=== PATIENT | female | born 1965 | race Caucasian/White ===

== ENCOUNTER 2021-01-15 10:16 | Inpatient (IN) | payer SELFPAY ==
[~2021-01-15 10:16] MED LIST: Iopamidol-370 76% 500 ML 1 ML ONE
[2021-01-15 10:46] LABS: Bacteria/HPF Rare-Few HPF (None Seen); Bilirubin Negative (Negative); Blood, Urine Negative (Negative); Clarity Turbid (Clear); Glucose, Urine (Dipstick) Normal (Negative); Ketone, Urine 40 mg/dL (Negative); Leukocyte 25 Leu/uL (Negative); Nitrite Negative (Negative); Protein, Urine (Dipstick) 70 mg/dL (Neg-Trace); RBC/HPF 0-3 HPF (0-3); Urobilinogen 3 mg/dL (Less than 2); pH, Urine 5.5 (5.0-9.0)
[2021-01-15 10:59] LABS: Hemoglobin 16.6 g/dL (12.0-16.0); Mean Corpuscular HGB CONC 33.1 g/dL (32.0-36.0); Mean Corpuscular Hemoglobin 29.1 pg (27.0-31.0); Mean Corpuscular Volume 87.7 fL (78.0-98.0); RBC Distribution Width 12.4 % (11.5-14.5); Red Blood Cell (RBC) Count 5.71 mill/uL (4.20-5.40); White Blood Cell (WBC) Count 5.6 thou/uL (4.8-10.8)
[2021-01-15 11:21] LABS: #Lymphocytes 1.4 thou/uL (1.20-3.40); #Monocytes 0.4 thou/uL (0.11-0.59); #Neutrophils 3.7 thou/uL (1.40-6.50); %Basophils 0.7 % (0.0-1.0); %Eosinophils 0.1 % (0.0-10.0); %Lymphocytes 24.3 % (21.0-51.0); %Neutrophils 66.9 % (42.0-75.0); Large Platelets MODERATE; MDiff Complete? YES; Mean Platelet Volume 10.2 fL (7.4-10.4); Platelet Count 85 thou/uL (130-400); Platelet Morphology Comment Appears Decreased; RBC Morphology Normal
[2021-01-15] MEDS ORDERED: Ondansetron PF 4 MG/2 ML Vial ONE (11:25)
[2021-01-15 11:33] LABS: Albumin 3.9 g/dL (3.5-5.0)
[2021-01-15] MEDS ORDERED: Azithromycin 500 MG VIAL ONE (11:33)
[2021-01-15] MEDS ORDERED: Dexamethasone 4 mg/ml Vial ONE (11:33)
[2021-01-15] MEDS ORDERED: Clopidogrel Bisulfate 75 MG TAB ONE (11:33)
[2021-01-15 11:34] LABS: Chloride 104 mmol/L (98-107); Potassium 4.3 mmol/L (3.5-5.1); Sodium 132 mmol/L (136-145)
[2021-01-15 11:35] LABS: Calcium 8.6 mg/dL (7.8-10.44); Glucose 193 mg/dL (70-105)
[2021-01-15 11:36] LABS: Globulin 3.8 g/dL (2.4-3.5); Protein, Total 7.7 g/dL (6.0-8.3)
[2021-01-15 11:37] LABS: Anion Gap 18 mmol/L (10-20); Bilirubin, Total 0.8 mg/dL (0.2-1.2); Carbon Dioxide 14 mmol/L (22-29)
[2021-01-15 11:38] LABS: Alkaline Phosphatase 98 U/L (40-110)
[2021-01-15 11:39] LABS: Calc. Creatinine Clearance 0 mL/min (70-130)
[2021-01-15 11:40] LABS: AST (SGOT) 89 U/L (5-34); BUN (Urea Nitrogen) 13 mg/dL (9.8-20.1)
[2021-01-15 11:41] LABS: ALT (SGPT) 58 U/L (8-55)
[2021-01-15 11:42] LABS: Lipase 55 U/L (8-78)
[2021-01-15 12:04] LABS: CKMB 0.2 ng/mL (0-6.6)
[2021-01-15 13:19] LABS: SARS-CoV-2 NAA Rapid Test DETECTED (NotDetected)
[2021-01-15] MEDS ORDERED: Albuterol Sulfate 2.5 mg/3 ml Neb NEB PRN (13:51)
[2021-01-15] MEDS ORDERED: Guaifenesin DM 100-10/5 ML UDCUP PO PRN (13:51)
[2021-01-15] MEDS ORDERED: Ondansetron PF 4 MG/2 ML Vial IVP PRN (13:51)
[2021-01-15] MEDS ORDERED: Senokot S 8.6-50 MG TAB PO PRN (13:51)
[2021-01-15] MEDS ORDERED: Acetaminophen 325 MG TAB PO PRN (13:51)
[2021-01-15] MEDS ORDERED: Loperamide HCl 2 MG CAP PO PRN (13:57)
[2021-01-15] MEDS ORDERED: Benzonatate 100 MG CAP PO PRN (13:57)
[2021-01-15] MEDS ORDERED: Sodium Chloride 0.9% 1,000 ML IV SCH (16:00)
[2021-01-15 16:12] VITALS: BMI 37.3
[2021-01-15] MEDS: Famotidine/PF 20 mg/2ml Vial SLOW IVP SCH (21:00)
[2021-01-16 06:21] LABS: #Lymphocytes 1.1 thou/uL (1.20-3.40); #Monocytes 0.3 thou/uL (0.11-0.59); #Neutrophils 3.4 thou/uL (1.40-6.50); %Eosinophils 0.2 % (0.0-10.0); %Lymphocytes 22.9 % (21.0-51.0); %Monocytes 6.7 % (0.0-10.0); %Neutrophils 70.2 % (42.0-75.0); Hemoglobin 14.1 g/dL (12.0-16.0); Mean Corpuscular HGB CONC 32.8 g/dL (32.0-36.0); Mean Corpuscular Hemoglobin 28.2 pg (27.0-31.0); Mean Platelet Volume 10.5 fL (7.4-10.4); Platelet Count 77 thou/uL (130-400); Red Blood Cell (RBC) Count 4.98 mill/uL (4.20-5.40); White Blood Cell (WBC) Count 4.8 thou/uL (4.8-10.8)
[2021-01-16 06:43] LABS: ALT (SGPT) 50 U/L (8-55); AST (SGOT) 67 U/L (5-34); Albumin 3.6 g/dL (3.5-5.0); Alkaline Phosphatase 86 U/L (40-110); Anion Gap 12 mmol/L (10-20); BUN (Urea Nitrogen) 13 mg/dL (9.8-20.1); Bilirubin, Total 0.6 mg/dL (0.2-1.2); CRP (Inflammatory) 2.16 mg/dL (= or < 0.5); Calc. Creatinine Clearance 118 mL/min (70-130); Calcium 7.9 mg/dL (7.8-10.44); Carbon Dioxide 21 mmol/L (22-29); Chloride 106 mmol/L (98-107); Glucose 230 mg/dL (70-105); Protein, Total 6.6 g/dL (6.0-8.3); Sodium 135 mmol/L (136-145)
[2021-01-16] MEDS ORDERED: HumaLOG 300 UNITS/3 ML VIAL SC PRN (07:52)
[2021-01-16] MEDS ORDERED: Dextrose 5% in Water 1,000 ML IV PRN (07:52)
[2021-01-16] MEDS ORDERED: Dextrose 50% Abboject 50 ML SYRINGE SLOW IVP PRN (07:52)
[2021-01-16] MEDS: Famotidine/PF 20 mg/2ml Vial SLOW IVP SCH (08:31)
[2021-01-16] MEDS ORDERED: Aspirin 81 mg Enteric Coated Tablet PO SCH (09:00)
[2021-01-16] MEDS ORDERED: Enoxaparin Sodium 40 MG/0.4 ML SYRINGE SC SCH (09:00)
[2021-01-16] MEDS ORDERED: Dexamethasone 4 mg/ml Vial SLOW IVP SCH (09:00)
[2021-01-16 11:42] VITALS: BP 109/70; TEMP 98.2
== END 2021-01-16 14:40 | disposition home or self-care (01) | DRG 177 ==
LOC: ERS 10:16 → T4-A 13:28
PROVIDERS: ADMIT Internal Medicine; ATTEND Internal Medicine
PROC: 8E0ZXY6 Isolation (ICD-10-PCS; principal; 2021-01-15)
DX: U07.1 COVID-19 (principal); J12.82 Pneumonia due to coronavirus disease 2019; E86.0 Dehydration; A08.4 Viral intestinal infection, unspecified; R71.8 Other abnormality of red blood cells; D69.6 Thrombocytopenia, unspecified; Z88.1 Allergy status to other antibiotic agents; Z88.6 Allergy status to analgesic agent
CPT/HCPCS: 0240U; 36415; 36416; 71045; 71275; 80053; 81003; 81015; 82550; 82553; 82728; 83605; 83615; 83690; 83880; 84484; 85025; 85379; 86140; 87086; 93005; 96365; 96366; 96374; 96375; J0456; J1100; J1815; J1956; J2405; S0028

== ENCOUNTER 2021-01-18 14:34 | Inpatient (IN) | payer SELFPAY ==
[~2021-01-18 14:34] MED LIST changes: +Heparin 1,000 UNITS/ML VIAL ONE; -Iopamidol-370 76% 500 ML 1 ML ONE
[2021-01-18] MEDS ORDERED: Dexamethasone 4 mg/ml Vial ONE (14:59)
[2021-01-18 15:24] LABS: #Basophils 0.1 thou/uL (0.0-0.2); #Lymphocytes 0.7 thou/uL (1.20-3.40); #Monocytes 0.3 thou/uL (0.11-0.59); #Neutrophils 5.4 thou/uL (1.40-6.50); %Basophils 0.8 % (0.0-1.0); %Eosinophils 0.1 % (0.0-10.0); %Monocytes 4.5 % (0.0-10.0); %Neutrophils 83.6 % (42.0-75.0); Hemoglobin 14.5 g/dL (12.0-16.0); Mean Corpuscular HGB CONC 33.1 g/dL (32.0-36.0); Mean Corpuscular Hemoglobin 28.5 pg (27.0-31.0); Mean Corpuscular Volume 86.3 fL (78.0-98.0); Mean Platelet Volume 10.2 fL (7.4-10.4); Platelet Count 94 thou/uL (130-400); RBC Distribution Width 12.2 % (11.5-14.5); Red Blood Cell (RBC) Count 5.07 mill/uL (4.20-5.40); White Blood Cell (WBC) Count 6.4 thou/uL (4.8-10.8)
[2021-01-18] MEDS ORDERED: Enoxaparin Sodium 80 MG/0.8 ML SYRINGE ONE (15:27)
[2021-01-18] MEDS ORDERED: Enoxaparin Sodium 30 MG/0.3 ML SYRINGE ONE (15:27)
[2021-01-18 15:32] LABS: Actual Bicarbonate (HCO3a) 22.7 mEq/L (22-28); Analyzer IN Cardio ER; Base Excess (BEa) 0.3 mEq/L (-2.0 to +3.0); CO2 Tension 30.8 mmHg (35.0-45.0); Carboxyhemoglobin (COHb) 0.4 gm% (0.0-3.0); Hemoglobin (Hb) 14.1 g/dL (12.0-16.0); Potassium - ABG Lab 3.92 mmol/L (3.70-5.30); pH, Arterial 7.49 (7.35-7.45)
[2021-01-18 15:33] LABS: O2 Tension (PaO2), arterial 53.6 mmHg (80.0-100.0)
[2021-01-18 15:45] LABS: ALT (SGPT) 37 U/L (8-55); AST (SGOT) 56 U/L (5-34); Albumin 3.7 g/dL (3.5-5.0); Alkaline Phosphatase 82 U/L (40-110); Anion Gap 18 mmol/L (10-20); BUN (Urea Nitrogen) 13 mg/dL (9.8-20.1); Bilirubin, Total 0.8 mg/dL (0.2-1.2); CK (CPK) 119 U/L (29-168); Calc. Creatinine Clearance 0 mL/min (70-130); Calcium 8.8 mg/dL (7.8-10.44); Carbon Dioxide 23 mmol/L (22-29); Chloride 102 mmol/L (98-107); Globulin 2.8 g/dL (2.4-3.5); Glucose 263 mg/dL (70-105); Lipase 69 U/L (8-78); Potassium 4.5 mmol/L (3.5-5.1); Protein, Total 6.5 g/dL (6.0-8.3); Sodium 138 mmol/L (136-145)
[2021-01-18] MEDS ORDERED: Ondansetron PF 4 MG/2 ML Vial ONE (16:22)
[2021-01-18] MEDS ORDERED: Ivermectin 3 MG TAB PO SCH (16:45)
[2021-01-18] MEDS ORDERED: Colchicine 0.6 MG TAB PO SCH (16:45)
[2021-01-18] MEDS ORDERED: cefTRIAXone\\ROCEPHIN 1 GM in Sodium Chloride 0.9% 100 ML IVPB SCH (18:00)
[2021-01-18] MEDS: methylPREDNISolone Sod Succ/PF 125 MG in Sodium Chloride 0.9% 250 ML 250 ML IVPB SCH (20:05)
[2021-01-18] MEDS: Famotidine/PF 20 mg/2ml Vial SLOW IVP SCH (20:07)
[2021-01-18] MEDS ORDERED: Enoxaparin Sodium 40 MG/0.4 ML SYRINGE SC SCH (21:00)
[2021-01-18] MEDS ORDERED: Dextrose 50% Abboject 50 ML SYRINGE SLOW IVP PRN (21:00)
[2021-01-18] MEDS ORDERED: Dextrose 5% in Water 1,000 ML IV PRN (21:00)
[2021-01-18 21:27] LABS: Actual Bicarbonate (HCO3a) 23.4 mEq/L (22-28); Base Excess (BEa) 0.6 mEq/L (-2.0 to +3.0); CO2 Tension 32.4 mmHg (35.0-45.0); Calcium, Ionized (arterial) 1.12 mmol/L (1.12-1.30); Carboxyhemoglobin (COHb) 0.1 gm% (0.0-3.0); Hemoglobin (Hb) 13.8 g/dL (12.0-16.0); Potassium - ABG Lab 4.38 mmol/L (3.70-5.30); pH, Arterial 7.48 (7.35-7.45)
[2021-01-18 21:28] LABS: O2 Tension (PaO2), arterial 59.1 mmHg (80.0-100.0); Puncture Site LRA
[2021-01-18] MEDS: Acetaminophen 325 MG TAB PO PRN (22:04)
[2021-01-18] MEDS: HumaLOG 300 UNITS/3 ML VIAL SC PRN (22:10)
[2021-01-19 03:42] LABS: #Lymphocytes 0.6 thou/uL (1.20-3.40); #Monocytes 0.3 thou/uL (0.11-0.59); #Neutrophils 2.8 thou/uL (1.40-6.50); %Eosinophils 0.1 % (0.0-10.0); %Lymphocytes 17.1 % (21.0-51.0); %Monocytes 7.6 % (0.0-10.0); %Neutrophils 75.3 % (42.0-75.0); Hemoglobin 13.8 g/dL (12.0-16.0); Mean Corpuscular HGB CONC 34.2 g/dL (32.0-36.0); Mean Corpuscular Hemoglobin 29.8 pg (27.0-31.0); Mean Corpuscular Volume 87.2 fL (78.0-98.0); Mean Platelet Volume 9.8 fL (7.4-10.4); Platelet Count 83 thou/uL (130-400); RBC Distribution Width 12.1 % (11.5-14.5); Red Blood Cell (RBC) Count 4.61 mill/uL (4.20-5.40); White Blood Cell (WBC) Count 3.7 thou/uL (4.8-10.8)
[2021-01-19 03:47] LABS: Hemoglobin A1c 8.8 % (4.0-6.0)
[2021-01-19 04:01] LABS: Anion Gap 12 mmol/L (10-20); BUN (Urea Nitrogen) 15 mg/dL (9.8-20.1); Calc. Creatinine Clearance 126 mL/min (70-130); Calcium 8.3 mg/dL (7.8-10.44); Carbon Dioxide 21 mmol/L (22-29); Chloride 106 mmol/L (98-107); Glucose 366 mg/dL (70-105); Potassium 4.2 mmol/L (3.5-5.1); Sodium 135 mmol/L (136-145)
[2021-01-19] MEDS: HumaLOG 300 UNITS/3 ML VIAL SC PRN ×4 (06:59→21:39)
[2021-01-19] MEDS ORDERED: Enoxaparin Sodium 80 MG/0.8 ML SYRINGE SC SCH ×2 (09:00)
[2021-01-19] MEDS ORDERED: Azithromycin 250 MG TAB PO SCH (09:00)
[2021-01-19] MEDS ORDERED: Ivermectin 3 MG TAB PO SCH (09:00)
[2021-01-19] MEDS ORDERED: methylPREDNISolone Sod Succ/PF 125 MG/2 ML VIAL IVP SCH (09:00)
[2021-01-19] MEDS: Ascorbic Acid 500 mg Chewable Tablet PO SCH (09:01)
[2021-01-19] MEDS: Cholecalciferol (Vitamin D3) 400 UNITS TAB PO SCH (09:01)
[2021-01-19] MEDS: Enoxaparin Sodium 40 MG/0.4 ML SYRINGE SC SCH ×2 (09:01→20:05)
[2021-01-19] MEDS: Famotidine/PF 20 mg/2ml Vial SLOW IVP SCH ×2 (09:01→20:05)
[2021-01-19] MEDS: Colchicine 0.6 MG TAB PO SCH ×2 (09:05→20:05)
[2021-01-19] MEDS ORDERED: Electrolyte Replacement Protocol FS PRN (11:33)
[2021-01-19] MEDS ORDERED: Ventilator Sedation Protocol 1 EACH FS ONE (11:33)
[2021-01-19] MEDS ORDERED: Fentanyl BOLUS 250 ML IVPB PRN (12:00)
[2021-01-19] MEDS ORDERED: Morphine 2 MG/ML VIAL SLOW IVP PRN (12:00)
[2021-01-19] MEDS ORDERED: Propofol BOLUS 1,000 MG/100 ML VIAL IV PRN (12:00)
[2021-01-19] MEDS ORDERED: DISCONTINUE PREVIOUS NARCOTIC PAIN MEDICATIONS AND BENZODIAZEPINES FS SCH (12:00)
[2021-01-19] MEDS ORDERED: Fentanyl CADD 100 ML ONE (12:56)
[2021-01-19 12:58] LABS: Actual Bicarbonate (HCO3a) 17.4 mEq/L (22-28); Base Excess (BEa) -5.9 mEq/L (-2.0 to +3.0); CO2 Tension 29.2 mmHg (35.0-45.0); Calcium, Ionized (arterial) 1.16 mmol/L (1.12-1.30); Carboxyhemoglobin (COHb) 0.1 gm% (0.0-3.0); Hemoglobin (Hb) 15.9 g/dL (12.0-16.0); O2 Tension (PaO2), arterial 102.7 mmHg (80.0-100.0); Puncture Site LRA; pH, Arterial 7.39 (7.35-7.45)
[2021-01-19] MEDS: Propofol 1,000 MG/100 ML VIAL IV PRN ×2 (13:04→21:42)
[2021-01-19] MEDS: Fentanyl CADD 100 ML IV SCH (13:05)
[2021-01-19] MEDS: Lorazepam 2 MG/ML VIAL SLOW IVP PRN (13:05)
[2021-01-19] MEDS: Lactated Ringer's 1,000 ML IV SCH (14:08)
[2021-01-19] MEDS: methylPREDNISolone Sod Succ/PF 125 MG in Sodium Chloride 0.9% 250 ML 250 ML IVPB SCH (16:15)
[2021-01-19] MEDS: NPH, Human Insulin Isophane 300 UNIT/3 ML VIAL SC SCH (20:06)
[2021-01-20] MEDS: Propofol 1,000 MG/100 ML VIAL IV PRN ×5 (03:03→20:25)
[2021-01-20] MEDS: Lorazepam 2 MG/ML VIAL SLOW IVP PRN ×2 (03:21→20:32)
[2021-01-20] MEDS: Vecuronium 10 MG VIAL IVP PRN ×2 (03:21→20:32)
[2021-01-20 03:51] LABS: #Lymphocytes 0.4 thou/uL (1.20-3.40); #Monocytes 0.4 thou/uL (0.11-0.59); #Neutrophils 3.6 thou/uL (1.40-6.50); %Basophils 0.1 % (0.0-1.0); %Lymphocytes 9.8 % (21.0-51.0); %Monocytes 9.2 % (0.0-10.0); %Neutrophils 80.9 % (42.0-75.0); Hemoglobin 13.5 g/dL (12.0-16.0); Mean Corpuscular HGB CONC 34.7 g/dL (32.0-36.0); Mean Corpuscular Hemoglobin 30.1 pg (27.0-31.0); Mean Corpuscular Volume 86.7 fL (78.0-98.0); Mean Platelet Volume 10.6 fL (7.4-10.4); Platelet Count 98 thou/uL (130-400); Red Blood Cell (RBC) Count 4.48 mill/uL (4.20-5.40); White Blood Cell (WBC) Count 4.4 thou/uL (4.8-10.8)
[2021-01-20 04:06] LABS: Anion Gap 14 mmol/L (10-20); BUN (Urea Nitrogen) 18 mg/dL (9.8-20.1); CRP (Inflammatory) 5.52 mg/dL (= or < 0.5); Calc. Creatinine Clearance 122 mL/min (70-130); Calcium 7.8 mg/dL (7.8-10.44); Carbon Dioxide 16 mmol/L (22-29); Chloride 110 mmol/L (98-107); Glucose 438 mg/dL (70-105); Sodium 136 mmol/L (136-145)
[2021-01-20] MEDS: Lactated Ringer's 1,000 ML IV SCH ×2 (05:17→17:24)
[2021-01-20] MEDS ORDERED: Fentanyl CADD 100 ML ONE ×2 (06:21→20:56)
[2021-01-20] MEDS: Fentanyl CADD 100 ML IV SCH ×2 (06:29→21:58)
[2021-01-20] MEDS: HumaLOG 300 UNITS/3 ML VIAL SC PRN ×3 (07:30→22:27)
[2021-01-20 08:15] LABS: Actual Bicarbonate (HCO3a) 18.6 mEq/L (22-28); Base Excess (BEa) -2.5 mEq/L (-2.0 to +3.0); Calcium, Ionized (arterial) 1.08 mmol/L (1.12-1.30); Carboxyhemoglobin (COHb) 0.3 gm% (0.0-3.0); O2 Tension (PaO2), arterial 84.6 mmHg (80.0-100.0); Potassium - ABG Lab 4.31 mmol/L (3.70-5.30); pH, Arterial 7.52 (7.35-7.45)
[2021-01-20 08:17] LABS: CO2 Tension 23.4 mmHg (35.0-45.0)
[2021-01-20 08:18] LABS: Puncture Site LRA
[2021-01-20] MEDS ORDERED: Famotidine 20 MG TAB PO SCH (09:00)
[2021-01-20] MEDS: NPH, Human Insulin Isophane 300 UNIT/3 ML VIAL SC SCH ×3 (10:05→21:58)
[2021-01-20] MEDS: Famotidine/PF 20 mg/2ml Vial SLOW IVP SCH (10:05)
[2021-01-20] MEDS: Colchicine 0.6 MG TAB PO SCH ×2 (10:07→20:24)
[2021-01-20] MEDS: Ivermectin 3 MG TAB PO SCH (10:08)
[2021-01-20] MEDS: Enoxaparin Sodium 40 MG/0.4 ML SYRINGE SC SCH ×2 (10:08→20:24)
[2021-01-20] MEDS: Zinc Sulfate 220 MG CAP PO SCH (10:08)
[2021-01-20] MEDS: Thiamine 100 MG TAB PO SCH (10:08)
[2021-01-20] MEDS: Ascorbic Acid 500 mg Chewable Tablet PO SCH (10:08)
[2021-01-20] MEDS: Cholecalciferol (Vitamin D3) 400 UNITS TAB PO SCH (10:08)
[2021-01-20] MEDS: Pantoprazole 40 MG VIAL IVP SCH (10:10)
[2021-01-20] MEDS: methylPREDNISolone Sod Succ/PF 125 MG in Sodium Chloride 0.9% 250 ML 250 ML IVPB SCH (17:23)
[2021-01-21] MEDS: Propofol 1,000 MG/100 ML VIAL IV PRN ×4 (02:19→19:41)
[2021-01-21 04:05] LABS: #Basophils 0.1 thou/uL (0.0-0.2); #Lymphocytes 0.4 thou/uL (1.20-3.40); #Monocytes 0.5 thou/uL (0.11-0.59); #Neutrophils 4.2 thou/uL (1.40-6.50); %Basophils 1.2 % (0.0-1.0); %Eosinophils 0.1 % (0.0-10.0); %Lymphocytes 7.5 % (21.0-51.0); %Monocytes 10.3 % (0.0-10.0); %Neutrophils 80.9 % (42.0-75.0); Hemoglobin 12.6 g/dL (12.0-16.0); Mean Corpuscular Hemoglobin 27.9 pg (27.0-31.0); Mean Corpuscular Volume 87.1 fL (78.0-98.0); Mean Platelet Volume 10.1 fL (7.4-10.4); Platelet Count 117 thou/uL (130-400); White Blood Cell (WBC) Count 5.2 thou/uL (4.8-10.8)
[2021-01-21] MEDS: Lorazepam 2 MG/ML VIAL SLOW IVP PRN ×3 (04:09→13:12)
[2021-01-21] MEDS: Vecuronium 10 MG VIAL IVP PRN ×3 (04:09→13:12)
[2021-01-21] MEDS: Lactated Ringer's 1,000 ML IV SCH (04:09)
[2021-01-21] MEDS: HumaLOG 300 UNITS/3 ML VIAL SC PRN ×4 (04:09→22:10)
[2021-01-21 04:34] LABS: Anion Gap 15 mmol/L (10-20); BUN (Urea Nitrogen) 20 mg/dL (9.8-20.1); CRP (Inflammatory) 1.81 mg/dL (= or < 0.5); Calc. Creatinine Clearance 130 mL/min (70-130); Calcium 7.5 mg/dL (7.8-10.44); Carbon Dioxide 17 mmol/L (22-29); Chloride 110 mmol/L (98-107); Glucose 358 mg/dL (70-105); Potassium 5.1 mmol/L (3.5-5.1); Sodium 137 mmol/L (136-145)
[2021-01-21] MEDS: Ascorbic Acid 500 mg Chewable Tablet PO SCH (08:01)
[2021-01-21] MEDS: Cholecalciferol (Vitamin D3) 400 UNITS TAB PO SCH (08:01)
[2021-01-21] MEDS: Colchicine 0.6 MG TAB PO SCH ×2 (08:01→19:41)
[2021-01-21] MEDS: Enoxaparin Sodium 40 MG/0.4 ML SYRINGE SC SCH ×2 (08:01→19:41)
[2021-01-21] MEDS: Thiamine 100 MG TAB PO SCH (08:01)
[2021-01-21] MEDS: Ivermectin 3 MG TAB PO SCH (08:01)
[2021-01-21] MEDS: Zinc Sulfate 220 MG CAP PO SCH (08:01)
[2021-01-21] MEDS: Pantoprazole 40 MG VIAL IVP SCH (08:02)
[2021-01-21] MEDS: NPH, Human Insulin Isophane 300 UNIT/3 ML VIAL SC SCH ×2 (08:03→21:52)
[2021-01-21 08:21] LABS: Actual Bicarbonate (HCO3a) 20.6 mEq/L (22-28); Base Excess (BEa) -1.8 mEq/L (-2.0 to +3.0); CO2 Tension 28.8 mmHg (35.0-45.0); Calcium, Ionized (arterial) 1.09 mmol/L (1.12-1.30); Hemoglobin (Hb) 13.2 g/dL (12.0-16.0); O2 Tension (PaO2), arterial 93.4 mmHg (80.0-100.0); Potassium - ABG Lab 4.61 mmol/L (3.70-5.30); pH, Arterial 7.47 (7.35-7.45)
[2021-01-21 08:28] LABS: Puncture Site RRA
[2021-01-21] MEDS ORDERED: NPH, Human Insulin Isophane 300 UNIT/3 ML VIAL SC SCH (08:45)
[2021-01-21] MEDS: Sodium Bicarbonate 50 MEQ in Sodium Chloride 0.45% 1,000 ML IV SCH (09:56)
[2021-01-21] MEDS: methylPREDNISolone Sod Succ/PF 125 MG in Sodium Chloride 0.9% 250 ML 250 ML IVPB SCH (17:27)
[2021-01-21] MEDS: Fentanyl CADD 100 ML IV SCH (18:25)
[2021-01-22] MEDS: Sodium Bicarbonate 50 MEQ in Sodium Chloride 0.45% 1,000 ML IV SCH ×2 (02:06→14:09)
[2021-01-22 03:50] LABS: #Lymphocytes 0.6 thou/uL (1.20-3.40); #Monocytes 0.6 thou/uL (0.11-0.59); #Neutrophils 4.1 thou/uL (1.40-6.50); %Basophils 0.2 % (0.0-1.0); %Eosinophils 0.1 % (0.0-10.0); %Lymphocytes 10.7 % (21.0-51.0); %Neutrophils 77.9 % (42.0-75.0); Hemoglobin 12.8 g/dL (12.0-16.0); Mean Corpuscular HGB CONC 33.4 g/dL (32.0-36.0); Mean Corpuscular Hemoglobin 29.1 pg (27.0-31.0); Mean Corpuscular Volume 87.2 fL (78.0-98.0); Mean Platelet Volume 9.9 fL (7.4-10.4); Platelet Count 109 thou/uL (130-400); RBC Distribution Width 11.9 % (11.5-14.5); White Blood Cell (WBC) Count 5.3 thou/uL (4.8-10.8)
[2021-01-22 04:03] LABS: Anion Gap 13 mmol/L (10-20); BUN (Urea Nitrogen) 18 mg/dL (9.8-20.1); CRP (Inflammatory) 0.72 mg/dL (= or < 0.5); Calc. Creatinine Clearance 152 mL/min (70-130); Calcium 7.3 mg/dL (7.8-10.44); Carbon Dioxide 20 mmol/L (22-29); Chloride 109 mmol/L (98-107); Glucose 272 mg/dL (70-105); Potassium 4.6 mmol/L (3.5-5.1); Sodium 137 mmol/L (136-145)
[2021-01-22] MEDS: HumaLOG 300 UNITS/3 ML VIAL SC PRN ×4 (04:10→21:42)
[2021-01-22] MEDS: Propofol 1,000 MG/100 ML VIAL IV PRN ×4 (04:10→23:54)
[2021-01-22 08:21] LABS: Actual Bicarbonate (HCO3a) 24.7 mEq/L (22-28); Base Excess (BEa) 1.4 mEq/L (-2.0 to +3.0); Calcium, Ionized (arterial) 1.07 mmol/L (1.12-1.30); Hemoglobin (Hb) 13.2 g/dL (12.0-16.0); O2 Tension (PaO2), arterial 102.3 mmHg (80.0-100.0); Potassium - ABG Lab 4.57 mmol/L (3.70-5.30); pH, Arterial 7.47 (7.35-7.45)
[2021-01-22 08:25] LABS: Puncture Site RRA
[2021-01-22] MEDS: NPH, Human Insulin Isophane 300 UNIT/3 ML VIAL SC SCH ×2 (08:42→21:19)
[2021-01-22] MEDS: Pantoprazole 40 MG VIAL IVP SCH (08:43)
[2021-01-22] MEDS: Enoxaparin Sodium 40 MG/0.4 ML SYRINGE SC SCH ×2 (08:43→21:19)
[2021-01-22] MEDS: Thiamine 100 MG TAB PO SCH (08:45)
[2021-01-22] MEDS: Ascorbic Acid 500 mg Chewable Tablet PO SCH (08:45)
[2021-01-22] MEDS: Zinc Sulfate 220 MG CAP PO SCH (08:45)
[2021-01-22] MEDS: Ivermectin 3 MG TAB PO SCH (08:45)
[2021-01-22] MEDS: Colchicine 0.6 MG TAB PO SCH ×2 (08:46→21:18)
[2021-01-22] MEDS: Cholecalciferol (Vitamin D3) 400 UNITS TAB PO SCH (08:46)
[2021-01-22] MEDS: Fentanyl CADD 100 ML IV SCH (14:08)
[2021-01-22] MEDS: methylPREDNISolone Sod Succ/PF 125 MG in Sodium Chloride 0.9% 250 ML 250 ML IVPB SCH (14:09)
[2021-01-23 03:59] LABS: #Lymphocytes 0.6 thou/uL (1.20-3.40); #Monocytes 0.8 thou/uL (0.11-0.59); #Neutrophils 4.8 thou/uL (1.40-6.50); %Basophils 0.1 % (0.0-1.0); %Eosinophils 0.7 % (0.0-10.0); %Lymphocytes 9.4 % (21.0-51.0); %Monocytes 12.7 % (0.0-10.0); %Neutrophils 77.2 % (42.0-75.0); Hemoglobin 13.5 g/dL (12.0-16.0); Mean Corpuscular HGB CONC 34.5 g/dL (32.0-36.0); Mean Corpuscular Hemoglobin 30.2 pg (27.0-31.0); Mean Corpuscular Volume 87.3 fL (78.0-98.0); Mean Platelet Volume 9.7 fL (7.4-10.4); Platelet Count 118 thou/uL (130-400); RBC Distribution Width 11.6 % (11.5-14.5); Red Blood Cell (RBC) Count 4.49 mill/uL (4.20-5.40); White Blood Cell (WBC) Count 6.3 thou/uL (4.8-10.8)
[2021-01-23 04:16] LABS: Anion Gap 12 mmol/L (10-20); BUN (Urea Nitrogen) 17 mg/dL (9.8-20.1); CRP (Inflammatory) Less than 0.50 mg/dL (= or < 0.5); Calc. Creatinine Clearance 147 mL/min (70-130); Calcium 7.5 mg/dL (7.8-10.44); Carbon Dioxide 25 mmol/L (22-29); Chloride 105 mmol/L (98-107); Glucose 244 mg/dL (70-105); Potassium 4.5 mmol/L (3.5-5.1); Sodium 137 mmol/L (136-145)
[2021-01-23] MEDS: HumaLOG 300 UNITS/3 ML VIAL SC PRN ×4 (04:33→21:38)
[2021-01-23] MEDS: Sodium Bicarbonate 50 MEQ in Sodium Chloride 0.45% 1,000 ML IV SCH (05:55)
[2021-01-23 07:41] LABS: Actual Bicarbonate (HCO3a) 26.3 mEq/L (22-28); Base Excess (BEa) 2.3 mEq/L (-2.0 to +3.0); CO2 Tension 38.6 mmHg (35.0-45.0); Calcium, Ionized (arterial) 1.06 mmol/L (1.12-1.30); Carboxyhemoglobin (COHb) 0.3 gm% (0.0-3.0); Hemoglobin (Hb) 13.3 g/dL (12.0-16.0); O2 Tension (PaO2), arterial 93.3 mmHg (80.0-100.0); Potassium - ABG Lab 4.49 mmol/L (3.70-5.30); pH, Arterial 7.45 (7.35-7.45)
[2021-01-23 07:46] LABS: Puncture Site RRA
[2021-01-23] MEDS: Enoxaparin Sodium 40 MG/0.4 ML SYRINGE SC SCH ×2 (09:27→21:16)
[2021-01-23] MEDS: Sodium Chloride 0.45% 1,000 ML IV SCH (09:28)
[2021-01-23] MEDS: Pantoprazole 40 MG VIAL IVP SCH (09:28)
[2021-01-23] MEDS: NPH, Human Insulin Isophane 300 UNIT/3 ML VIAL SC SCH ×2 (10:03→21:16)
[2021-01-23] MEDS: Ascorbic Acid 500 mg Chewable Tablet PO SCH (12:53)
[2021-01-23] MEDS: Cholecalciferol (Vitamin D3) 400 UNITS TAB PO SCH (12:53)
[2021-01-23] MEDS: Colchicine 0.6 MG TAB PO SCH ×2 (12:53→21:15)
[2021-01-23] MEDS: Thiamine 100 MG TAB PO SCH (12:53)
[2021-01-23] MEDS: Zinc Sulfate 220 MG CAP PO SCH (12:53)
[2021-01-23] MEDS: Ivermectin 3 MG TAB PO SCH (12:57)
[2021-01-23] MEDS: methylPREDNISolone Sod Succ/PF 125 MG in Sodium Chloride 0.9% 250 ML 250 ML IVPB SCH (16:31)
[2021-01-24] MEDS: Sodium Chloride 0.45% 1,000 ML IV SCH ×3 (00:16→16:22)
[2021-01-24 03:34] LABS: #Eosinphils 0.1 thou/uL (0.0-0.7); #Lymphocytes 0.8 thou/uL (1.20-3.40); #Neutrophils 6.2 thou/uL (1.40-6.50); %Basophils 0.1 % (0.0-1.0); %Eosinophils 0.7 % (0.0-10.0); %Lymphocytes 10.1 % (21.0-51.0); %Neutrophils 77.1 % (42.0-75.0); Hemoglobin 14.2 g/dL (12.0-16.0); Mean Corpuscular HGB CONC 34.3 g/dL (32.0-36.0); Mean Corpuscular Hemoglobin 29.7 pg (27.0-31.0); Mean Corpuscular Volume 86.7 fL (78.0-98.0); Mean Platelet Volume 9.7 fL (7.4-10.4); Platelet Count 140 thou/uL (130-400); RBC Distribution Width 11.4 % (11.5-14.5); Red Blood Cell (RBC) Count 4.77 mill/uL (4.20-5.40)
[2021-01-24 04:00] LABS: Anion Gap 12 mmol/L (10-20); BUN (Urea Nitrogen) 15 mg/dL (9.8-20.1); CRP (Inflammatory) Less than 0.50 mg/dL (= or < 0.5); Calc. Creatinine Clearance 165 mL/min (70-130); Calcium 7.7 mg/dL (7.8-10.44); Carbon Dioxide 26 mmol/L (22-29); Chloride 105 mmol/L (98-107); Glucose 160 mg/dL (70-105); Potassium 4.1 mmol/L (3.5-5.1); Sodium 139 mmol/L (136-145)
[2021-01-24 05:39] VITALS: BMI 38.5
[2021-01-24] MEDS: Ivermectin 3 MG TAB PO SCH ×2 (08:38→10:31)
[2021-01-24] MEDS: Thiamine 100 MG TAB PO SCH (08:38)
[2021-01-24] MEDS: Colchicine 0.6 MG TAB PO SCH ×3 (08:38→21:00)
[2021-01-24] MEDS: Zinc Sulfate 220 MG CAP PO SCH (08:38)
[2021-01-24] MEDS: Enoxaparin Sodium 40 MG/0.4 ML SYRINGE SC SCH ×2 (08:38→19:43)
[2021-01-24] MEDS: Ascorbic Acid 500 mg Chewable Tablet PO SCH (08:38)
[2021-01-24] MEDS: Pantoprazole 40 MG VIAL IVP SCH (08:38)
[2021-01-24] MEDS: NPH, Human Insulin Isophane 300 UNIT/3 ML VIAL SC SCH ×2 (08:39→23:03)
[2021-01-24] MEDS: Cholecalciferol (Vitamin D3) 400 UNITS TAB PO SCH (08:39)
[2021-01-24] MEDS: HumaLOG 300 UNITS/3 ML VIAL SC PRN (09:58)
[2021-01-24] MEDS: methylPREDNISolone Sod Succ 40 MG VIAL IVP SCH ×2 (11:23→16:23)
[2021-01-24] MEDS: Acetaminophen 325 MG TAB PO PRN (16:22)
[2021-01-24] MEDS: Colchicine 0.6 MG TAB PER TUBE SCH (20:55)
[2021-01-25] MEDS: methylPREDNISolone Sod Succ 40 MG VIAL IVP SCH ×4 (01:09→17:21)
[2021-01-25] MEDS: Ondansetron PF 4 MG/2 ML Vial IVP PRN (04:04)
[2021-01-25] MEDS: Sodium Chloride 0.45% 1,000 ML IV SCH (05:08)
[2021-01-25 05:23] LABS: #Eosinphils 0.2 thou/uL (0.0-0.7); #Lymphocytes 0.9 thou/uL (1.20-3.40); #Monocytes 1.1 thou/uL (0.11-0.59); #Neutrophils 7.2 thou/uL (1.40-6.50); %Basophils 0.1 % (0.0-1.0); %Eosinophils 1.9 % (0.0-10.0); %Monocytes 12.2 % (0.0-10.0); %Neutrophils 76.9 % (42.0-75.0); Mean Corpuscular HGB CONC 33.5 g/dL (32.0-36.0); Mean Corpuscular Hemoglobin 28.7 pg (27.0-31.0); Mean Corpuscular Volume 85.8 fL (78.0-98.0); Mean Platelet Volume 9.9 fL (7.4-10.4); Platelet Count 158 thou/uL (130-400); RBC Distribution Width 11.6 % (11.5-14.5); Red Blood Cell (RBC) Count 4.86 mill/uL (4.20-5.40); White Blood Cell (WBC) Count 9.4 thou/uL (4.8-10.8)
[2021-01-25] MEDS ORDERED: Promethazine HCl 25 MG in Sodium Chloride 0.9% 50 ML IVPB PRN (05:32)
[2021-01-25 05:47] LABS: Anion Gap 12 mmol/L (10-20); BUN (Urea Nitrogen) 17 mg/dL (9.8-20.1); Calc. Creatinine Clearance 163 mL/min (70-130); Carbon Dioxide 26 mmol/L (22-29); Chloride 103 mmol/L (98-107); Glucose 134 mg/dL (70-105); Potassium 3.9 mmol/L (3.5-5.1); Sodium 137 mmol/L (136-145)
[2021-01-25] MEDS: Pantoprazole 40 MG VIAL IVP SCH (08:25)
[2021-01-25] MEDS: Enoxaparin Sodium 40 MG/0.4 ML SYRINGE SC SCH ×2 (08:25→20:21)
[2021-01-25] MEDS: NPH, Human Insulin Isophane 300 UNIT/3 ML VIAL SC SCH ×2 (08:26→20:22)
[2021-01-25] MEDS: Ascorbic Acid 500 mg Chewable Tablet PO SCH (12:31)
[2021-01-25] MEDS: Cholecalciferol (Vitamin D3) 400 UNITS TAB PO SCH (12:31)
[2021-01-25] MEDS: Thiamine 100 MG TAB PO SCH (12:36)
[2021-01-25] MEDS: Zinc Sulfate 220 MG CAP PO SCH (12:36)
[2021-01-25] MEDS: Colchicine 0.6 MG TAB PER TUBE SCH ×2 (12:36→20:21)
[2021-01-25] MEDS: Ivermectin 3 MG TAB PO SCH ×2 (12:55→12:59)
[2021-01-26] MEDS: methylPREDNISolone Sod Succ 40 MG VIAL IVP SCH ×2 (00:19→05:30)
[2021-01-26] MEDS: Ondansetron PF 4 MG/2 ML Vial IVP PRN ×2 (01:56→09:15)
[2021-01-26 06:13] LABS: #Eosinphils 0.1 thou/uL (0.0-0.7); #Lymphocytes 1.1 thou/uL (1.20-3.40); #Monocytes 0.9 thou/uL (0.11-0.59); %Basophils 0.2 % (0.0-1.0); %Eosinophils 0.9 % (0.0-10.0); %Lymphocytes 13.5 % (21.0-51.0); %Monocytes 11.3 % (0.0-10.0); %Neutrophils 74.1 % (42.0-75.0); Hemoglobin 14.1 g/dL (12.0-16.0); Mean Corpuscular HGB CONC 33.6 g/dL (32.0-36.0); Mean Corpuscular Volume 86.4 fL (78.0-98.0); Mean Platelet Volume 9.9 fL (7.4-10.4); Platelet Count 161 thou/uL (130-400); RBC Distribution Width 11.7 % (11.5-14.5); Red Blood Cell (RBC) Count 4.87 mill/uL (4.20-5.40); White Blood Cell (WBC) Count 8.1 thou/uL (4.8-10.8)
[2021-01-26 06:57] LABS: Anion Gap 11 mmol/L (10-20); BUN (Urea Nitrogen) 15 mg/dL (9.8-20.1); Calc. Creatinine Clearance 178 mL/min (70-130); Calcium 7.7 mg/dL (7.8-10.44); Carbon Dioxide 27 mmol/L (22-29); Chloride 104 mmol/L (98-107); Glucose 133 mg/dL (70-105); Potassium 4.8 mmol/L (3.5-5.1); Sodium 137 mmol/L (136-145)
[2021-01-26] MEDS: Ascorbic Acid 500 mg Chewable Tablet PO SCH (08:50)
[2021-01-26] MEDS: Colchicine 0.6 MG TAB PER TUBE SCH ×2 (08:50→20:11)
[2021-01-26] MEDS: Cholecalciferol (Vitamin D3) 400 UNITS TAB PO SCH (08:50)
[2021-01-26] MEDS: Zinc Sulfate 220 MG CAP PO SCH (08:50)
[2021-01-26] MEDS: Thiamine 100 MG TAB PO SCH (08:50)
[2021-01-26] MEDS: Enoxaparin Sodium 40 MG/0.4 ML SYRINGE SC SCH ×2 (08:50→20:11)
[2021-01-26] MEDS: Pantoprazole 40 MG VIAL IVP SCH (08:51)
[2021-01-26] MEDS: NPH, Human Insulin Isophane 300 UNIT/3 ML VIAL SC SCH ×2 (08:52→20:11)
[2021-01-26] MEDS: Ivermectin 3 MG TAB PO SCH (09:05)
[2021-01-26] MEDS: predniSONE 20 MG TAB PO SCH (11:44)
[2021-01-27] MEDS: Ondansetron ODT 4 MG TAB PO PRN (05:30)
[2021-01-27] MEDS: Pantoprazole 40 MG VIAL IVP SCH (08:55)
[2021-01-27] MEDS: Ascorbic Acid 500 mg Chewable Tablet PO SCH (08:55)
[2021-01-27] MEDS: Thiamine 100 MG TAB PO SCH (08:55)
[2021-01-27] MEDS: Zinc Sulfate 220 MG CAP PO SCH (08:55)
[2021-01-27] MEDS: Colchicine 0.6 MG TAB PER TUBE SCH ×2 (08:55→20:16)
[2021-01-27] MEDS: Cholecalciferol (Vitamin D3) 400 UNITS TAB PO SCH (08:55)
[2021-01-27] MEDS: Enoxaparin Sodium 40 MG/0.4 ML SYRINGE SC SCH ×2 (08:56→20:16)
[2021-01-27] MEDS: Ivermectin 3 MG TAB PO SCH (08:59)
[2021-01-27] MEDS: NPH, Human Insulin Isophane 300 UNIT/3 ML VIAL SC SCH ×2 (11:28→20:17)
[2021-01-27] MEDS: predniSONE 20 MG TAB PO SCH (12:56)
[2021-01-28] MEDS: Cholecalciferol (Vitamin D3) 400 UNITS TAB PO SCH (08:18)
[2021-01-28] MEDS: Enoxaparin Sodium 40 MG/0.4 ML SYRINGE SC SCH ×2 (08:18→20:20)
[2021-01-28] MEDS: Colchicine 0.6 MG TAB PER TUBE SCH ×2 (08:19→20:20)
[2021-01-28] MEDS: Ivermectin 3 MG TAB PO SCH (08:19)
[2021-01-28] MEDS: Ascorbic Acid 500 mg Chewable Tablet PO SCH (08:19)
[2021-01-28] MEDS: Thiamine 100 MG TAB PO SCH (08:19)
[2021-01-28] MEDS: Zinc Sulfate 220 MG CAP PO SCH (08:19)
[2021-01-28] MEDS: Pantoprazole 40 MG VIAL IVP SCH (08:20)
[2021-01-28] MEDS: Ondansetron ODT 4 MG TAB PO PRN (08:27)
[2021-01-28] MEDS: NPH, Human Insulin Isophane 300 UNIT/3 ML VIAL SC SCH ×2 (09:50→20:46)
[2021-01-28] MEDS: predniSONE 20 MG TAB PO SCH (11:44)
[2021-01-28] MEDS: HumaLOG 300 UNITS/3 ML VIAL SC PRN ×2 (17:39→20:21)
[2021-01-28 20:36] VITALS: TEMP 97.5
[2021-01-29 06:25] LABS: #Basophils 0.1 thou/uL (0.0-0.2); #Eosinphils 0.1 thou/uL (0.0-0.7); #Lymphocytes 4.7 thou/uL (1.20-3.40); #Monocytes 1.5 thou/uL (0.11-0.59); #Neutrophils 5.6 thou/uL (1.40-6.50); %Basophils 0.9 % (0.0-1.0); %Monocytes 12.4 % (0.0-10.0); %Neutrophils 46.8 % (42.0-75.0); Hemoglobin 15.1 g/dL (12.0-16.0); Mean Corpuscular HGB CONC 32.2 g/dL (32.0-36.0); Mean Corpuscular Hemoglobin 28.5 pg (27.0-31.0); Mean Corpuscular Volume 88.4 fL (78.0-98.0); Mean Platelet Volume 10.6 fL (7.4-10.4); Platelet Count 190 thou/uL (130-400); RBC Distribution Width 12.5 % (11.5-14.5); Red Blood Cell (RBC) Count 5.32 mill/uL (4.20-5.40); White Blood Cell (WBC) Count 11.9 thou/uL (4.8-10.8)
[2021-01-29 06:40] LABS: Anion Gap 12 mmol/L (10-20); BUN (Urea Nitrogen) 10 mg/dL (9.8-20.1); Calc. Creatinine Clearance 156 mL/min (70-130); Calcium 8.4 mg/dL (7.8-10.44); Carbon Dioxide 23 mmol/L (22-29); Chloride 108 mmol/L (98-107); Glucose 93 mg/dL (70-105); Potassium 3.9 mmol/L (3.5-5.1); Sodium 139 mmol/L (136-145)
[2021-01-29 07:46] VITALS: BP 113/70
[2021-01-29] MEDS: Ascorbic Acid 500 mg Chewable Tablet PO SCH (08:56)
[2021-01-29] MEDS: Colchicine 0.6 MG TAB PER TUBE SCH (08:56)
[2021-01-29] MEDS: Thiamine 100 MG TAB PO SCH (08:57)
[2021-01-29] MEDS: Zinc Sulfate 220 MG CAP PO SCH (08:57)
[2021-01-29] MEDS: NPH, Human Insulin Isophane 300 UNIT/3 ML VIAL SC SCH (08:57)
[2021-01-29] MEDS: Cholecalciferol (Vitamin D3) 400 UNITS TAB PO SCH (08:57)
[2021-01-29] MEDS: Enoxaparin Sodium 40 MG/0.4 ML SYRINGE SC SCH (08:57)
[2021-01-29] MEDS: Pantoprazole 40 MG VIAL IVP SCH (09:00)
[2021-01-29] MEDS: Ivermectin 3 MG TAB PO SCH (09:00)
[2021-01-29] MEDS: predniSONE 20 MG TAB PO SCH (12:03)
== END 2021-01-29 18:20 | disposition home or self-care (01) | DRG 208 ==
LOC: ERS 14:34 → CCU 16:22 → 2SW 01-24 15:11 → T4-A 01-25 19:48
PROVIDERS: ADMIT Internal Medicine; ATTEND Internal Medicine
PROC: 8E0ZXY6 Isolation (ICD-10-PCS; 2021-01-18)
PROC: 5A1945Z Respiratory Ventilation, 24-96 Consecutive Hours (ICD-10-PCS; principal; 2021-01-19)
PROC: 0BH17EZ Insertion of Endotracheal Airway into Trachea, Via Natural or Artificial Opening (ICD-10-PCS; 2021-01-19)
DX: U07.1 COVID-19 (principal); J12.82 Pneumonia due to coronavirus disease 2019; J96.01 Acute respiratory failure with hypoxia; E87.2 Acidosis; T38.0X5A Adverse effect of glucocorticoids and synthetic analogues, initial encounter; A08.4 Viral intestinal infection, unspecified; I48.91 Unspecified atrial fibrillation; R53.81 Other malaise; R29.898 Other symptoms and signs involving the musculoskeletal system; E11.65 Type 2 diabetes mellitus with hyperglycemia; I95.9 Hypotension, unspecified; Z88.0 Allergy status to penicillin; Z88.8 Allergy status to other drugs, medicaments and biological substances; Z98.51 Tubal ligation status
CPT/HCPCS: 36415; 36416; 36600; 71045; 71275; 80048; 80053; 82550; 82805; 83036; 83605; 83690; 83880; 84484; 85025; 85379; 86140; 87040; 93005; 94002; 94003; 96365; 96366; 96372; 96374; 96375; C9113; J1100; J1650; J1815; J1956; J2060; J2405; J2704; J2920; J2930; J3010; J3262; J3490; J7050; J7512; Q0162; S0028